=== PATIENT | male | born 1980 | race Caucasian/White ===

== ENCOUNTER 2016-12-01 22:29 | Emergency (ER) | payer SELFPAY ==
[~2016-12-01] VITALS: Ht 165.1 cm; Wt 65.0 kg
[2016-12-01 22:34] VITALS: BP 137/79; PULSE 76; RESP 18; TEMP 98.3; O2SAT 100
[2016-12-01 22:36] VITALS: BP 137/78; PULSE 78; RESP 18; O2SAT 100
[2016-12-01] MEDS ORDERED: MORPHINE SULFATE 4 MG/ML INJ IV PUSH ONE (22:45)
[2016-12-01] MEDS ORDERED: ceFAZolin 2 GM PREMIX 50 ML IV ONE (22:45)
[2016-12-01] MEDS ORDERED: SODIUM CHLOR 0.9% 1000 ML INJ 1,000 ML IV ONE (22:45)
[2016-12-01] MEDS ORDERED: TETANUS/DIPHTHERIA TOXOID PEDIATRIC 0.5 ML VIAL IM ONE (22:45)
[2016-12-01 22:57] LABS: AUTOMATED NEUTROPHIL # 8.5 TH/MM3 (1.8-7.7); BASOPHIL # 0.2 TH/MM3 (0-0.2); BASOPHIL % 1.2 % (0.0-2.0); EOSINOPHIL # 0.3 TH/MM3 (0-0.4); EOSINOPHIL % 2.6 % (0.0-4.0); HEMO FLAGS DIFF FINAL; LYMPH % 27.7 % (9.0-44.0); LYMPHOCYTE # 3.6 TH/MM3 (1.0-4.8); MEAN CORPUSCULAR HEMOGLOBIN 31.3 PG (27.0-34.0); MEAN CORPUSCULAR HGB CONC 33.3 % (32.0-36.0); MONO % 2.8 % (0.0-8.0); NEUT % 65.7 % (16.0-70.0); PLATELET COUNT 272 TH/MM3 (150-450); RED BLOOD COUNT 4.79 MIL/MM3 (4.50-5.90); RED CELL DISTRIBUTION WIDTH 14.3 % (11.6-17.2)
[2016-12-01 23:07] LABS: APTT (PATIENT) 21.9 SEC (24.3-30.1); PROTHROMBIN TIME - PATIENT 10.9 SEC (9.8-11.6)
[2016-12-01 23:14] LABS: BICARBONATE 26.1 MEQ/L (21.0-32.0); POTASSIUM 3.2 MEQ/L (3.5-5.1)
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
[2016-12-01] MEDS ORDERED: PROPOFOL 200 MG/20 ML AMP IV ONE (23:30)
[2016-12-01] MEDS ORDERED: IOHEXOL 350 MG/ML 10 ML VIAL (for RAD DIAG) IV ONE (23:50)
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
[2016-12-02] MEDS ORDERED: IBUP-232 PO (01:23)
[2016-12-02] MEDS ORDERED: POTASSIUM CHLORIDE 25 MEQ EFFERVESCENT TAB PO ONE (01:30)
--- NOTE | 2016-12-02 01:34 | RADRPT ---
EXAM DATE/TIME: 12/02/2016 00:49 [facility] COMPARISON: No previous studies available for comparison. INDICATIONS : Post reduction left elbow. MEDICAL HISTORY : None. SURGICAL HISTORY : None. ENCOUNTER: Subsequent ACUITY: 1 day PAIN SCORE: Non-responsive. LOCATION: Left elbow. FINDINGS: Previous elbow dislocation has been reduced. There is a small joint effusion. CONCLUSION: 1. Reduction of previous elbow dislocation. No fracture identified on single lateral view. Humberto Almodovar MD on December 02, 2016 at 1:32 Board Certified Radiologist. This report was verified electronically.
[2016-12-02 01:38] LABS: AMPHETAMINE, URINE NEG (NEG); BARBITURATES, URINE NEG (NEG); COCAINE, URINE NEG (NEG)
[2016-12-02] MEDS ORDERED: TETANUS/DIPHTHERIA TOXOID ADULT 0.5 ML VIAL IM ONE (02:00)
[2016-12-02 02:04] VITALS: BP 133/85; PULSE 101; RESP 18; TEMP 98.4; O2SAT 100
== END 2016-12-02 02:23 | disposition home or self-care (01) ==
LOC: NEPC 22:29
DX: S53.195A Other dislocation of left ulnohumeral joint, initial encounter (principal); S00.81XA Abrasion of other part of head, initial encounter; Y00.XXXA Assault by blunt object, initial encounter; F10.129 Alcohol abuse with intoxication, unspecified; Y93.9 Activity, unspecified; Y92.89 Other specified places as the place of occurrence of the external cause; Z72.0 Tobacco use; Y90.7 Blood alcohol level of 200-239 mg/100 ml
CPT/HCPCS: 24600; 70450; 71260; 72125; 73060; 73070; 74177; 80048; 80307; 85025; 85610; 85730; 90471; 90714; 96374; 96375; 99156; 99157; 99284; J0690; J2270; J7030; Q9967